=== PATIENT | female | born 1985 | race Caucasian/White ===

== ENCOUNTER 2021-03-29 13:15 | Outpatient (CLI) | payer BC, SELFPAY ==
--- NOTE | ~2021-03-29 | XR_ITS ---
EXAMINATION: XR lg joint inject/asp w image DATE: 03/29/2021 14:21 INDICATION: Left hip arthritis. TECHNIQUE: A time-out was performed to verify the patient's name, date of , and procedure to b e performed. The procedure including the risks, benefits, and alternatives was discussed with the pat ient. Risks discussed included bleeding and infection. The patient understood the risks and agreed to proceed. The skin overlying the left hip joint was prepped and draped in usual sterile fashion. An esthetic was administered with 1% lidocaine subcutaneously. A 22 G needle was advanced under fluoros copic guidance into the joint. Injection of 1 mL of Omnipaque 240 confirmed intra-articular position of the needle. Subsequently, injectate consisting of 2 mL 0.5% bupivacaine and 1 mL 80 mg/mL Depo-M edrol was instilled. The needle was removed and the entry site was cleaned and dressed. There were no immediate complications. Fluoroscopy exposure time was 0.1 minutes. The total number of images was 2. FINDINGS: Real-time fluoroscopy demonstrates the needle in the left hip joint. Patient's pain prior t o procedure:03/01. Patient's pain following the procedure: 12/02. IMPRESSION: 1. Fluoroscopy guided left hip joint injection of local anesthetic and steroid with decrease in the p atient's presenting pain. Reviewed, dictated and finalized at location A. IMPRESSION: 1. Fluoroscopy guided left hip joint injection of local anesthetic and steroid with decrease in the patient's presenting pain.
--- NOTE | ~2021-03-29 | XR_ITS ---
EXAMINATION: XR lg joint inject/asp add DATE: 03/29/2021 14:21 INDICATION: Right hip arthritis. TECHNIQUE: A time-out was performed to verify the patient's name, date of , and procedure to b e performed. The procedure including the risks, benefits, and alternatives was discussed with the pat ient. Risks discussed included bleeding and infection. The patient understood the risks and agreed to proceed. The skin overlying the right hip joint was prepped and draped in usual sterile fashion. A nesthetic was administered with 1% lidocaine subcutaneously. A 22 G needle was advanced under fluoro scopic guidance into the joint. Injection of 1 mL of Omnipaque 240 confirmed intra-articular positio n of the needle. Subsequently, injectate consisting of 2 mL 0.5% bupivacaine and 1 mL 80 mg/mL Depo- Medrol was instilled. The needle was removed and the entry site was cleaned and dressed. There were no immediate complications. Fluoroscopy exposure time was 0.1 minutes. The total number of images wa s 2. FINDINGS: Real-time fluoroscopy demonstrates the needle in the right hip joint. Patient's pain prior to procedure:08/01. Patient's pain following the procedure: 05/01. IMPRESSION: 1. Fluoroscopy guided right hip joint injection of local anesthetic and steroid with decrease in the patient's presenting pain. Reviewed, dictated and finalized at location A.
== END 2021-03-29 13:16 | disposition home or self-care (01) ==
PROVIDERS: PCP Nurse Practitioner Family; Visit Provider Orthopaedic Surgery
DX: M17.0 Bilateral primary osteoarthritis of knee (principal)
CPT/HCPCS: 20610; 77002; J1040; Q9966

== ENCOUNTER 2024-03-13 00:37 | Day surgery (SDC) | payer OTHER, SELFPAY ==
[2024-03-07 09:52] VITALS: BMI 34.2
--- NOTE | 2024-03-07 10:20 | PC.NURSE ---
Report to the Outpatient Waiting Room, entrance under the green pavilion located off [facility], at time __10:30AM on date ____03/13/24___. Planned Procedure Time: _12:30PM . Time changes happen often and if your time is changed the preop area will call you the afternoon before. - You and your visitor will be asked to self-screen and do not enter if you have any COVID symptoms. - A mask is optional within the hospital at this time. Patients may have clear liquids (water, carbonated beverages, clear teas, apple juice) until 3 hours prior to surgery with a maximum of 20 ounces. - No food from midnight until time of surgery - Infants may have breast milk until 4 hours before surgery, formula 6 hours prior to surgery. - Children will be allowed to drink immediately following surgery. If applicable, please bring a bottle or sippy cup to assist with drinking. Juice, water, soda, and popsicles are readily available. For infants on formula, please bring formula the day of surgery. Pacifiers are allowed. Take the following medications with a SIP of water the morning of surgery: NONE DO NOT STOP ANY OF YOUR OTHER PRESCRIPTION MEDICATIONS PRIOR TO SURGERY ?EXCEPT THE FOLLOWING Medications to discontinue per physician ___HOLD ALL VITAMINS/SUPPLEMENTS 3 DAYS PRE-OP PER ANESTHESIA Date to take last dose 03/09/24 Please no make-up, nail filipino, hairspray, perfume, deodorant, or body powder the day of surgery. No jewelry (including any body piercings) or valuables the day of surgery, leave them at home. Please take a shower or bath the night before, or the morning of, surgery with an antibacterial soap. Wear comfortable, loose fitting clothing. Children are encouraged to wear pajamas. - Jewelry must be removed prior to entering the operating room. Rings and piercings that are not removed may be cut off. - The hospital will not accept responsibility for valuables. - Please leave all valuables, including medications, at home the day of surgery. If you are going home after surgery, a licensed belly dump driver must drive you home. - NO public transportation without another adult if you receive anesthesia. - We recommend that an adult stay with you for 24 hours following discharge. - We also recommend that you do not drive, make important decision, drink alcoholic beverages, or take any drugs that were not prescribed by your health care provider for at least 24 hours after your discharge time. For Pediatric surgeries, we recommend two adults accompany the child home. Follow any additional instructions given to you from your surgeon. If you or anyone in your household have experienced Covid symptoms in the past week, please notify your surgeon or the nurse liaison at the phone number below for possible testing. Telephone instructions given to ____PATIENT and asked if any additional questions and then verbalized understanding. Patient advised to call surgeon office or pre surgery nurse liaison [phone] if any additional questions.
[2024-03-13] VITALS (10 sets, daily range): BP systolic 110–144; BP diastolic 62–89; PULSE 52–79; RESP 13–18; TEMP 36.2–36.6; O2SAT 96–100
[2024-03-13] MEDS: LACTATED RINGERS 1,000 ML 30 ML IV CONT ×2 (11:46→14:46)
--- NOTE | 2024-03-13 11:48 | WPDANESEPPF ---
Anes - Initial Pre Proc Eval Procedure: Operation Date: 03/13/24 13:15 Proposed Procedures p Hysteroscopy with Anita Endometrial Ablation, Laparoscopic Bilateral Salpingectomy - Juwan Goodwin MD Date/Time: 03/13/24 11:48 Surgeon: Juwan Goodwin MD Pre Op Diagnosis: Female Sterilization, Menorrhagia Patient Data Age: 39 Gender: F Height: 1.7 m Weight: 99 kg Last Vital Signs Temp 98 F 03/13/24 11:42 Pulse 68 03/13/24 11:42 BP 132/89 03/13/24 11:42 O2 Del Method Room Air 03/13/24 11:42 Allergies Allergy/AdvReac Type Severity Reaction Status Date / Time No Known Allergies Allergy Unknown Verified 03/07/24 09:49 Home Medications Medication Instructions Recorded Confirmed Type elderberry fruit 200 mg capsule 400 mg PO DAILY 03/07/24 03/07/24 History ergocalciferol (vitamin D2) 1,250 50,000 mcg PO WEEKLY 03/07/24 03/07/24 History mcg (50,000 unit) capsule Patient hx anesthesia problems: none Family hx anesthesia problems: none Results Review: All pre-operative results and documents have been reviewed as part of the pre-operative evaluation. [facility] Past Medical History Medical History Anxiety Arthritis BMI 45.0-49.9, adult Depression Helicobacter pylori (H. pylori) Right shoulder pain Rotator cuff tendonitis Skin tag Vision changes Wears glasses Weight gain Surgical History Surgical History History of emergency section 2013 Family History Family History Mother Family history of mental disorder Depression Asthma Family history of arthritis Family history of diabetes mellitus in first degree relative Family history of seizure disorder Family history of hearing loss Father Family history of seizure disorder Other Arthritis Breast cancer Cerebrovascular accident Diabetes mellitus Family history of cardiovascular disease Family history of chronic obstructive pulmonary disease Family history of congestive heart failure Heart disease High cholesterol Hypertension Neuropathy Social History Social History Smoking packs per day: 0.2 Smoking cigarettes per day: 4.0 Years smoked: 17 Smoking pack-years: 3.40 Smoking status: Former smoker Tobacco type: cigarettes Smoking end date: 04/22/19 Alcohol intake: current Drinks per week: 2 Substance use: never Other substance usage details: VAPES-MARIJUANA Living arrangements: with friend(s) Additional living arrangements comments: CHILDREN & OTHER FAMILY Occupation/Education: occupation Gender identity (if verbalized by the patient): Female Spiritual care concerns: No Anes - Eval Final PreProcedure Day of Procedure 03/13/24 11:48 Patient weight: obese Heart: regular rate and rhythm Lungs: clear to auscultation Airway: Mallampati scale and special considerations (Missing R lower tooth. ) Neurological: alert and oriented Last oral intake: >/= 8 hours ASA classification: II Emergent: no Anesthetic plan: proceed Anesthesia type and monitoring: general GIVS and standard monitoring Results Review: All pre-operative results and documents have been reviewed as part of the pre-operative evaluation. Pt had stress test 2022 prior to bariatric sx, neg for ischemia. Neg sleep study at that time and pt has lost 105 pounds since her bariatric sx. Informed Consent: The patient's anesthetic plan and its attendant risks and benefits were discussed with the patient/family/POA. Questions were solicited and answers provided to the satisfaction of the patient/family/POA.
[2024-03-13] MEDS: ACETAMINOPHEN 500 MG TABLET 1000 MG PO (12:00)
[2024-03-13] MEDS: KETOROLAC 15 MG/ML VIAL (*BKC) IV PUSH (12:00)
--- NOTE | 2024-03-13 12:06 | WPDHPUPDATE1 ---
History and Physical Update Update Date/Time: 03/13/24 12:06 History and Physical has been reviewed, including an updated exam of the patient. There are NO changes in the patient's condition. Risks, benefits, and alternatives have been discussed and questions answered. Patient agrees to proceed with procedure.
--- NOTE | 2024-03-13 12:06 | PM.IMHP ---
H&P: HPI History of Present Illness Date/Time: 03/13/24 12:06 Chief Complaint: heavy vaginal bleeding, unwanted fertility Narrative: this patient is a 39-year-old female with menorrhagia and unwanted fertility. We agreed to perform laparoscopic bilateral salpingectomy and endometrial ablation. The patient understands the details of the procedure. The procedure has been explained in detail. She understands the risks. She understands that injuries may occur that result in hospitalization, more surgery, and severe illness. She understands risk of hemorrhage and infection. She denies any chest pain or shortness of breath. She denies any nausea, vomiting, fever, chills. Review of Systems Review of Systems: All systems reviewed & are unremarkable except as noted in HPI and below Constitutional: Constitutional: Denies chills, Denies fatigue, Denies fever(s) and Denies weakness Eyes: Eyes: Denies blurry vision, Denies change in vision, Denies loss of peripheral vision, Denies loss of vision, Denies other visual disturbances and Denies eye pain ENT: Denies vertigo, Denies dizziness, Denies hearing loss, Denies mouth pain, Denies nasal obstruction, Denies neck mass and Denies neck pain Cardiovascular: Cardiovascular: Denies chest pain, Denies diaphoresis, Denies syncope, Denies leg edema and Denies dyspnea Respiratory: Respiratory: Denies chest congestion, Denies cough, Denies hemoptysis, Denies dyspnea and Denies wheezing Gastrointestinal: Gastrointestinal: Denies abdominal pain, Denies constipation, Denies diarrhea, Denies nausea and Denies vomiting Genitourinary: Genitourinary: Denies hematuria, Denies change in libido, Denies nocturia, Denies genital lesions, Denies flank pain and Denies urinary urgency Musculoskeletal: Musculoskeletal: Denies abnormal gait, Denies back pain, Denies myalgias, Denies arthralgias, Denies joint swelling, Denies muscle weakness and Denies neck pain Integumentary/Breasts: Skin/Breast: Denies swelling, Denies breast pain, Denies breast mass, Denies dry skin, Denies nipple discharge, Denies unusual bruising and Denies jaundice Neurologic: Denies Neuro-related abnormal movements, Denies Abnormal speech present, Denies abnormal gait, Denies behavioral changes, Denies confusion, Denies vertigo, Denies dizziness, Denies syncope, Denies loss of vision, Denies memory loss, Denies convulsions and Denies weakness Psychiatric: Psychiatric: Denies abnormal sleep pattern, Denies behavioral changes, Denies change in libido, Denies confusion, Denies depression, Denies anhedonia and Denies memory loss Endocrine: Endocrine: Reports no additional endocrine complaints, Denies change in libido and Denies fatigue Hematologic/Lymphatic: Hematologic/Lymphatic: Reports no additional hematologic/lymphatic complaints Allergic/Immunologic: Allergic/Immunologic: Reports no additional allergic/immunologic complaints and Denies wheezing PMFSH Past Medical History Medical History Anxiety Arthritis BMI 45.0-49.9, adult Depression Helicobacter pylori (H. pylori) Right shoulder pain Rotator cuff tendonitis Skin tag Vision changes Wears glasses Weight gain Surgical History Surgical History History of emergency section 2012 Family History Family History Mother Family history of mental disorder Depression Asthma Family history of arthritis Family history of diabetes mellitus in first degree relative Family history of seizure disorder Family history of hearing loss Father Family history of seizure disorder Other Arthritis Breast cancer Cerebrovascular accident Diabetes mellitus Family history of cardiovascular disease Family history of chronic obstructive pulmonary disease Family history of congestive heart failure Heart disea
--- NOTE | 2024-03-13 13:52 | P.OP_ITS ---
Procedure Note - Detailed Date of Procedure 03/13/24 Pre-op Diagnosis Female Sterilization, Menorrhagia Post-op Diagnosis Same Procedure Performed Laparoscopic bilateral salpingectomy with endometrial ablation and hysteroscopy. Surgeon Juwan Goodwin MD Anesthesia General Indications Menorrhagia, female sterilization Findings normal-appearing tubes and ovaries and uterus. Normal vulva, vagina, cervix. Normal endometrium Description of Procedure Patient was taken the operating room. She has prepped draped in the dorsal lithotomy position after induction of general anesthesia. A 5 mm abdominal incision was made in left upper quadrant of the abdomen with scalpel. A 5 mm trocars inserted the intra-abdominal cavity under direct visualization of the scope. Pneumoperitoneum was achieved. A 5 mm periumbilical incision was made using a scalpel on the abdominal scan. A 5 mm trocar was inserted the intra- abdominal cavity under visualization of the scope. A 5 mm incision made left lower quadrant of the abdomen. A 5 mm trocar was inserted the intra-abdominal cavity and direct visualization of the scope. The bilateral fallopian tubes were removed. The paratubal tissue in the area of the uterus was grasped with the LigaSure cautery and transected after being cauterized. The paratubal tissue from the ovary to the uterine cornu was cauterized and transected with LigaSure cautery. This was all done in a bilateral fashion. The tube was transected at the area of the uterine cornua and the tubes was removed through the 5 mm trocar site. The pneumoperitoneum was reduced. The trocars were removed. The skin was closed with subcuticular 4 Monocryl and covered with Dermabond. Our attention was then turned to the endometrial ablation portion of the procedure. A speculum was placed in the vagina. The cervix was grasped with a tenaculum. The cervix was dilated to approximately 8 mm with Matos dilators. The hysteroscope was inserted. And the below findings were noted. All of the intrauterine surfaces were curettaged with a medium-size curette and the specimens were collected. Measurements of the cervix were taken using the uterine sound and the hysteroscope. The intrauterine cavity measurements were entered into the handpiece. The device was inserted into the intrauterine cavity and the array was expanded. The balloon cuff was inflated. When an adequate seal was formed the safety and energy cycles were initiated and completed. The array was collapsed, the balloon was deflated. The insert was withdrawn. The hysteroscope was reinserted and a well desiccated intrauterine cavity was observed. The patient was taken recovery room stable condition. Sponge lap and needle counts were correct x2. She tolerated the procedure well. Pathology Yes Complications No immediate complications Condition Stable Disposition PACU
[2024-03-13] MEDS: fentaNYL CITRATE INJ (*CRX) 100 MCG/2 ML VIAL 25 MCG IV PUSH ×4 (15:02→15:11)
[2024-03-13] MEDS: diphenhydrAMINE HCl INJ 50 MG/ML VIAL 25 MG IV PUSH (15:36)
== END 2024-03-13 16:35 | disposition home health service (06) ==
PROVIDERS: Visit Provider Obstetrics & Gynecology
PROC: 0UDB8ZZ Extraction of Endometrium, Via Natural or Artificial Opening Endoscopic (ICD-10-PCS; CPT 58558; principal; 2024-03-13 13:15)
DX: N92.0 Excessive and frequent menstruation with regular cycle (principal); Z30.2 Encounter for sterilization; Z87.891 Personal history of nicotine dependence; F12.90 Cannabis use, unspecified, uncomplicated; E66.9 Obesity, unspecified; Z68.34 Body mass index [BMI] 34.0-34.9, adult
CPT/HCPCS: 58661; 58563; 88302; 88305; A9270; J1100; J1170; J1200; J1885; J2250; J2405; J2704; J3010; J7030; J7120

== ENCOUNTER 2024-05-13 22:29 | Emergency (ER) | payer BC, OTHER, SELFPAY ==
--- NOTE | ~2024-05-13 | XR_ITS ---
EXAMINATION: XR chest 2V DATE: 05/14/2024 01:16 INDICATION: Cough and fever TECHNIQUE: PA and lateral views of the chest were obtained. COMPARISON: CT dated 05/14/2024 FINDINGS: Patchy retrocardiac opacities in the left lower lobe consistent with aspiration or pneumonia. Right l travis is clear. No pulmonary edema, pleural effusion or pneumothorax. The cardiomediastinal silhouette is normal. Visualized bones and soft tissues are unremarkable. IMPRESSION: 1. Left lower lobe opacities which could represent aspiration or pneumonia. Reviewed, dictated and finalized at location A.
--- NOTE | ~2024-05-13 | CT_ITS ---
EXAMINATION: CT abdomen pelvis w con DATE: 05/14/2024 01:10 INDICATION: Fever, urinary tract infection, nausea and vomiting TECHNIQUE: Computed tomography (CT) of the abdomen and pelvis was performed with 100 mL Omnipaque-350 intravenous contrast. Automated exposure control and iterative reconstruction technique were employe d. The dose-length product was 807.21 mGy-cm. COMPARISON: None FINDINGS: Region of patchy consolidation and tree-in-bud opacities in the posterior basilar left lower lobe con sistent with pneumonia. Heart size is normal. No pericardial or pleural effusion. Small sliding-type hiatal hernia with postoperative change of prior sleeve gastrectomy. Focal hepatic steatosis at the l igamentum teres. 1.3 cm hepatic cyst. Spleen, pancreas, bilateral adrenal glands and left kidney are normal. 6 mm soft tissue density lesion at the lower pole the right kidney. There is fluid throughout the proximal colon consistent with diarrhea. Bowels are otherwise unremarkable with no obstruction a nd with normal appendix. Bladder, anteverted uterus and left ovary are unremarkable. 2.0 cm right ova annamarie cyst/follicle. No free intraperitoneal gas or fluid. No pathologically enlarged abdominal or pel matt lymphadenopathy. Minimal likely physiologic anterior wedging at T10-T12. IMPRESSION: 1. Left lower lobe aspiration or pneumonia. 2. Fluid in the colon which could be seen with diarrhea. No other acute intra-abdominal/pelvic proces s. 3. 6 mm indeterminate right renal lesion statistically most likely to represent a complex proteinaceo us/hemorrhagic cyst but would recommend further evaluation with pre and postcontrast MRI. Reviewed, dictated and finalized at location A. IMPRESSION: 1. Left lower lobe aspiration or pneumonia. 2. Fluid in the colon which could be seen with diarrhea. No other acute intra-a bdominal/pelvic process. 3. 6 mm indeterminate right renal lesion statistically most likely to represent a complex proteinaceous/hemorrhagic cyst but would recommend further evaluatio n with pre and postcontrast MRI.
[2024-05-13 22:30] VITALS: BP 141/85; PULSE 109; RESP 20; TEMP 37.4; O2SAT 98
[2024-05-13 23:19] LABS: Appearance Urine Turbid (Clear); Bacteria Urine 4+ /hpf; Bilirubin Urine Negative (Negative); Blood Urine 3+ (Negative); Color Urine Dark Yellow (Yellow); Glucose Urine UA Negative (Negative); Ketones Urine 2+ mg/dL (Negative); Leukocyte Esterase Ur 3+ LEU/UL (Negative); Need Manual Microscopic Reviewed; Nitrate Urine Negative (Negative); Protein Urine 2+ mg/dL (Negative); RBC Urine 21-50 /hpf (0-2); Specific Grav Ur 1.021 (1.001-1.035); Squamous Epithelial Cell Urine Many /hpf (Few); WBC Urine >100 /hpf (0-3); pH Urine 5.5 (5.0-9.0)
[2024-05-13 23:25] LABS: Add Urine Microscopic? YES
[2024-05-13 23:37] LABS: Influenza A QL RT-PCR Negative (Negative); Influenza B QL RT-PCR Negative (Negative); RSV RNA, RT-PCR Negative (Negative); SARS-CoV-2 RNA PCR Negative (Negative)
[2024-05-14 00:17] LABS: Basophils Percent Auto 0.2 % (0.2-1.2); Eosinophils Percent Auto 0.1 % (0-4.4); Hematocrit 43.8 % (37.0-47.0); Hemoglobin 14.6 g/dL (12.0-15.0); Immature Granulocyte Absolute 0.03 K/mm3 (0.00-0.031); Immature Granulocyte Percent A 0.2 % (0-0.5); Lymphocytes Absolute Auto 1.32 K/mm3 (0.9-3.2); Lymphocytes Percent Auto 9.9 % (18.3-44.2); Mean Corpuscular HGB Conc 33.3 g/dl (32-36); Mean Corpuscular Hemoglobin 30.3 pg (26-34); Mean Corpuscular Volume 90.9 fl (80-100); Mean Platelet Volume 9.5 fl (7.4-10.4); Monocytes Absolute Auto 1.3 K/mm3 (0.1-0.6); Neutrophils Absolute Auto 10.6 K/mm3 (1.3-6.7); Neutrophils Percent Auto 79.6 % (45.5-73.1); Platelet Count Result 242 k/mm3 (150-375); Red Blood Count 4.82 M/mm3 (4.2-5.4); Red Cell Distribution Width 12.9 % (11.5-14.5); White Blood Count 13.3 K/mm3 (4.5-10.0)
[2024-05-14 00:20] LABS: Anion Gap 11 mmol/L (4-12); Blood Urea Nitrogen 8 mg/dL (7-17); Calcium 9.3 mg/dL (8.4-10.2); Carbon Dioxide 24 mmol/L (22-30); Chloride 103 mmol/L (98-107); Estimated CRCL calculation 129 ml/min; Estimated Glomerular Filt Rate > 60; Glucose 99 mg/dL (65-110); Potassium 3.4 mmol/L (3.4-5.0); Sodium 138 mmol/L (137-145)
--- NOTE | 2024-05-14 00:40 | ECG_ITS ---
Test Date: 2024-05-14 01:47:45 Measurements Intervals Ola Rate: 79 P: 31 MO: 143 QRS: 8 QRSD: 97 T: 14 QT: 362 QTc: 416 Interpretive Statements SINUS RHYTHM BORDERLINE T WAVE ABNORMALITY- ANT/INF LEADS BORDERLINE ECG No previous ECG available for comparison Electronically Signed On 05-14-2024 07:18:43 CDT by Gregory Andino D.O.
--- NOTE | 2024-05-14 00:48 | ED.FEVER ---
HPI - Fever General Chief Complaint: Fever Stated Complaint: fever Time Seen by Provider: 05/13/24 23:43 Source: patient Mode of arrival: ambulatory Limitations: no limitations History of Present Illness HPI Narrative: This is a 39-year-old female that presents to the emergency department for fevers. Ongoing since yesterday. Reports she was having chest pain prior to the start of her fevers. Reports a cough and headache. Reports some diarrhea. Reports anorexia. Denies vomiting, dysuria, hematuria. Related Data Home Medications Medication Instructions Recorded Confirmed elderberry fruit 200 mg capsule 400 mg PO DAILY 03/07/24 03/07/24 ergocalciferol (vitamin D2) 1,250 50,000 mcg PO WEEKLY 03/07/24 03/07/24 mcg (50,000 unit) capsule Allergies Allergy/AdvReac Type Severity Reaction Status Date / Time No Known Allergies Allergy Unknown Verified 03/07/24 09:49 Review of Systems Review of Systems: CONSTITUTIONAL: Reports fever ENT: Reports congestion and otalgia. Denies sore throat CARDIOVASCULAR: Reports chest pain RESPIRATORY: Reports cough GASTROINTESTINAL: Reports diarrhea. Denies abdominal pain, nausea, vomiting GENITOURINARY: Denies dysuria or hematuria. All systems reviewed & are unremarkable except as noted in HPI and below PMFSH Past Medical History Medical History Anxiety Arthritis BMI 45.0-49.9, adult Depression Helicobacter pylori (H. pylori) Right shoulder pain Rotator cuff tendonitis Skin tag Vision changes Wears glasses Weight gain Surgical History Surgical History History of emergency section 2013 Family History Family History Mother Family history of mental disorder Depression Asthma Family history of arthritis Family history of diabetes mellitus in first degree relative Family history of seizure disorder Family history of hearing loss Father Family history of seizure disorder Other Arthritis Breast cancer Cerebrovascular accident Diabetes mellitus Family history of cardiovascular disease Family history of chronic obstructive pulmonary disease Family history of congestive heart failure Heart disease High cholesterol Hypertension Neuropathy Social History Social History Smoking packs per day: 0.2 Smoking cigarettes per day: 4.0 Years smoked: 17 Smoking pack-years: 3.40 Smoking status: Former smoker Tobacco type: cigarettes Smoking end date: 04/22/19 Alcohol intake: current Drinks per week: 2 Substance use: never Other substance usage details: VAPES-MARIJUANA Living arrangements: with friend(s) Additional living arrangements comments: CHILDREN & OTHER FAMILY Occupation/Education: occupation Gender identity (if verbalized by the patient): Female Spiritual care concerns: No Exam Narrative: GENERAL: Well-appearing, well-nourished, and in no acute distress. HEAD: Normocephalic, atraumatic. EYES: EOMI. ENT: Nares clear, no rhinorrhea or epistaxis. Mucous membranes moist. Oropharynx without tonsillar hypertrophy exudate or other lesions. Bilateral TMs pearly rodney non-bulging NECK: Supple. No adenopathy or masses. CHEST: Clear to auscultation. No respiratory distress. No wheezes rales or rhonchi HEART: Regular rate and rhythm. No murmur heard. Normal peripheral pulses. ABDOMEN: Soft, nontender, nondistended, normal active bowel sounds. EXTREMITIES: Normal range of motion. No edema. SKIN: Warm, dry, no rash. NEURO: No focal deficits. Alert and oriented x3. PSYCH: Normal mood and affect Course Vital Signs Vital signs: Vital Signs Temperature 99.3 F 05/13/24 22:30 Pulse Rate 109 H 05/13/24 22:30 Respiratory Rate 20 05/13/24 22:30 Blood Pressure 141/85
[2024-05-14 00:57] LABS: Alanine Aminotransferase 18 U/L (6-35); Albumin Level 4.7 g/dL (3.5-5.1); Alkaline Phosphatase 62 U/L (38-126); Aspartate Amino Transferase 24 U/L (14-36); Bilirubin,Total 1.8 mg/dL (0.2-1.3); Lipase 60 U/L (23-300)
[2024-05-14] MEDS: SODIUM CHLORIDE 0.9% IV 1,000 ML 999 ML IV CONT (00:59)
[2024-05-14] MEDS: diphenhydrAMINE HCl INJ 50 MG/ML VIAL 25 MG IV PUSH (00:59)
[2024-05-14] MEDS: METOCLOPRAMIDE HCL INJ 10 MG/2 ML VIAL IV PUSH (00:59)
[2024-05-14 01:08] LABS: Troponin I < 0.012 ng/mL (0.000-0.034)
[2024-05-14 01:30] VITALS: BP 131/76; PULSE 94; RESP 17; O2SAT 97
[2024-05-14 02:15] VITALS: BP 129/84; PULSE 85; RESP 17; O2SAT 96
[2024-05-14 03:15] VITALS: BP 133/81; PULSE 81; RESP 20; O2SAT 97
[2024-05-14] MEDS: AZITHROMYCIN 250 MG TABLET 500 MG PO (03:41)
[2024-05-14] MEDS: AMOXICILLIN/CLAVULANATE K 875-125 MG TAB 1 TABLET PO (03:41)
== END 2024-05-14 03:40 | disposition home or self-care (01) ==
PROVIDERS: Emergency Medicine; Emergency Provider Physician Assistant
DX: J18.9 Pneumonia, unspecified organism (principal); R82.81 Pyuria; M19.90 Unspecified osteoarthritis, unspecified site; Z87.891 Personal history of nicotine dependence
CPT/HCPCS: 36415; 71046; 74177; 80048; 80076; 81001; 81025; 83690; 84484; 85025; 87086; 87088; 87637; 93005; 96361; 96374; 96375; 99284; A9270; J1200; J2765; J7030; Q9967